=== PATIENT | male | born 1960 | race Caucasian/White ===

== ENCOUNTER 2016-10-16 22:22 | Emergency (ER) | payer OTHER | END 2016-10-16 23:22 | disposition home or self-care (01) | LOC: ER 22:22 | DX: S81.012A Laceration without foreign body, left knee, initial encounter (principal); W27.8XXA Contact with other nonpowered hand tool, initial encounter; Z79.899 Other long term (current) drug therapy; Z88.1 Allergy status to other antibiotic agents; Z88.8 Allergy status to other drugs, medicaments and biological substances | CPT/HCPCS: 12001; 99070; 99282-25 ==

== ENCOUNTER 2016-10-18 23:58 | Emergency (ER) | payer OTHER | END 2016-10-19 00:36 | disposition home or self-care (01) | LOC: ER 23:58 | DX: M79.642 Pain in left hand (principal); R60.0 Localized edema; F17.210 Nicotine dependence, cigarettes, uncomplicated; Z88.1 Allergy status to other antibiotic agents; Z88.8 Allergy status to other drugs, medicaments and biological substances | CPT/HCPCS: 73130; 99283-25 ==

== ENCOUNTER 2016-11-13 17:21 | Emergency (ER) | payer OTHER | END 2016-11-13 17:35 | disposition home or self-care (01) | LOC: ER 17:21 | DX: J04.0 Acute laryngitis (principal); K05.10 Chronic gingivitis, plaque induced; F17.210 Nicotine dependence, cigarettes, uncomplicated; Z79.899 Other long term (current) drug therapy; Z88.1 Allergy status to other antibiotic agents; Z88.8 Allergy status to other drugs, medicaments and biological substances | CPT/HCPCS: 99282 ==